=== PATIENT | female | born 1985 | race Asian ===

== ENCOUNTER 2019-06-23 06:42 | Inpatient (IN) | payer MEDICAID, OTHER, SELFPAY ==
--- NOTE | 2019-06-22 20:11 | PDOC.LDHP ---
Labor and Delivery H&P Chief complaint: scheduled induction HPI: 34 yo @ 40w0d by stated FRANCHESKA c/w sono in [place]. Pt had majority of PNC in [place]. Pt has A1DM and had been treated for Chlamydia in this (no BRYAN yet due to recent treatment). Current gestational age (weeks): 40 Due date: 06/23/19 Dating criteria: last menstrual period Grav: 2 Para: 1 OB History Details: 1 term Current complications: gestational diabetes Abnormal US findings: No Past Medical History: Anemia Current medications: pre-fernando vitamins, iron Previous surgical history: none Allergies/Adverse Reactions: Allergies Allergy/AdvReac Type Severity Reaction Status Date / Time No Known Allergies Allergy Verified 06/23/19 07:22 Social history: none - Physical Exam Vital signs reviewed and normal: yes General: NAD Heart: RRR Lungs: nonlabored breathing Abdomen: gravid Extremeties: no edema FHT: category 1 (140s, mod debra, +accels, no decels) [place] contractions every: irregular - Vaginal Exam cm dilated: 4 (cephalic, AROM clear fluid- bloody discharge from SVE) Effacement: 50% Station: -2 - OB Labs Blood type: B RH: positive Antibody Screen: negative HIV: negative RPR: negative HEPSAg: negative 3 hour GTT: 2 hr GTT positive- done in [place] GBS: negative Urine drug screen: negative Rubella: immune Additional Labs: Gonorrhea neg Chlamydia pos - Assessment 40w0d IUP IOL A1DM + CT, treated (BRYAN pending) - Plan Plan: admit to L&D, informed consent obtained, anesthesia consult for pain management -: Start pitocin for IOL
[2019-06-23] MEDS ORDERED: Carboprost 250 MCG/ML AMP IM PRN (06:58)
[2019-06-23] MEDS ORDERED: Diphenoxylate HCl/Atropine Tablet PO PRN (06:58)
[2019-06-23] MEDS ORDERED: HYDROcodone/Acetaminophen 5/325 mg Tablet PO PRN ×2 (06:58→14:46)
[2019-06-23] MEDS ORDERED: Ibuprofen 800 MG TAB PO PRN (06:58)
[2019-06-23] MEDS ORDERED: Promethazine HCl 25 MG/ML VIAL IM PRN (06:58)
[2019-06-23] MEDS ORDERED: Butorphanol Tartrate 1 MG/ML VIAL SLOW IVP PRN (06:58)
[2019-06-23] MEDS ORDERED: Misoprostol 200 MCG TAB PR PRN (06:58)
[2019-06-23] MEDS ORDERED: NS / Oxytocin 40 units/1000ml 1,000 ML IV PRN (06:58)
[2019-06-23] MEDS ORDERED: Acetaminophen 500 MG TAB PO PRN (06:58)
[2019-06-23] MEDS ORDERED: Methylergonovine 0.2 MG/ML VIAL IM PRN (06:58)
[2019-06-23] MEDS ORDERED: Lidocaine 1% (PF) 30 ML VIAL SC PRN (06:58)
[2019-06-23] MEDS ORDERED: hydrALAZINE 20 MG/ML VIAL SLOW IVP PRN ×2 (06:58→14:46)
[2019-06-23] MEDS ORDERED: Ondansetron PF 4 MG/2 ML Vial IVP PRN (06:58)
[2019-06-23] MEDS ORDERED: NS w/ Oxytocin 10 units 500 ML IV SCH (07:00)
[2019-06-23 07:32] VITALS: BMI 24.7
[2019-06-23 07:46] LABS: Hemoglobin 11.5 g/dL (12.0-16.0); Mean Corpuscular HGB CONC 33.4 g/dL (32.0-36.0); Mean Corpuscular Hemoglobin 30.3 pg (27.0-31.0); Mean Corpuscular Volume 90.9 fL (78.0-98.0); Mean Platelet Volume 9.4 fL (7.4-10.4); Platelet Count 148 thou/uL (130-400); RBC Distribution Width 15.5 % (11.5-14.5); White Blood Cell (WBC) Count 6.7 thou/uL (4.8-10.8)
[2019-06-23] MEDS: Lactated Ringer's 1,000 ML IV SCH ×3 (07:58→22:02)
[2019-06-23 08:12] LABS: ALT (SGPT) 8 U/L (8-55); AST (SGOT) 12 U/L (5-34); Albumin 3.4 g/dL (3.5-5.0); Alkaline Phosphatase 154 U/L (40-150); Anion Gap 11 mmol/L (10-20); BUN (Urea Nitrogen) 8 mg/dL (7.0-18.7); Bilirubin, Total 0.2 mg/dL (0.2-1.2); Calc. Creatinine Clearance 150 mL/min (70-130); Calcium 8.4 mg/dL (7.8-10.44); Carbon Dioxide 21 mmol/L (22-29); Chloride 107 mmol/L (98-107); Estimated GFR-MDRD Greater than 90; Globulin 2.4 g/dL (2.4-3.5); Glucose 133 mg/dL (70-105); Potassium 3.4 mmol/L (3.5-5.1); Protein, Total 5.8 g/dL (6.0-8.3); Sodium 136 mmol/L (136-145)
[2019-06-23 08:19] LABS: Syphilis Antibody Nonreactive (Nonreactive); Syphilis Antibody Index 0.04 S/CO (<1.00 Non-Reactive)
[2019-06-23 08:21] LABS: HIV (1/2) Antibody/Antigen Non-Reactive (NonReactive); HIV 1/2 INDEX 0.09 S/CO (<1.00); Hep B Surf Ag Non-Reactive S/CO (NonReactive)
[2019-06-23] MEDS ORDERED: Fentanyl 4 mcg/Bup 0.1% Cadd 100 ML ONE (11:35)
--- NOTE | 2019-06-23 14:09 | PDOC.OPDEL ---
OB Operative/Delivery Note Delivery Dr/Surgeon: Karin Brooks DO Pre-Delivery Diagnosis: medically indicated induction Procedure/Post Delivery Dx: spontaneous vaginal delivery Weeks gestation: 40 Anesthesia: epidural - Findings A Sex: female - 1 min: 9 - 5 min: 9 - Additional Findings/Plan Placenta delivered: spontaneous Repaired Obstetrical Laceration: other (2nd degree laceration Small left vaughn- uretheral laceration) Estimated blood loss: EBL 100 cc Compilations/Other Findings: Infant in DEVEN position Normal appearing placenta Post delivery plan: routine recovery
[2019-06-23] MEDS ORDERED: Benzocaine-Menthol 82.5 ML CAN TOP PRN (14:46)
[2019-06-23] MEDS ORDERED: NS / Oxytocin 40 units/1000ml 1,000 ML IV SCH ×2 (14:46→22:30)
[2019-06-23] MEDS ORDERED: Preparation H Ointment 28 GM TUBE PR PRN (14:46)
[2019-06-23] MEDS ORDERED: diphenhydrAMINE 25 MG CAP PO PRN (14:46)
[2019-06-23] MEDS ORDERED: Milk Of Magnesia 30 ML UDCUP PO PRN (14:46)
[2019-06-23] MEDS ORDERED: Bisacodyl 10 MG SUPP PR PRN (14:46)
[2019-06-23] MEDS ORDERED: Lanolin Ointment 7 GM TUBE TOP PRN (14:46)
[2019-06-23] MEDS: Ferrous Sulfate 325 MG TAB PO SCH (16:46)
[2019-06-23] MEDS: Docusate Calcium (SURFAK) 240 MG CAP PO SCH (21:37)
[2019-06-23] MEDS: Ibuprofen 800 MG TAB PO SCH (22:03)
[2019-06-24 06:30] LABS: Hemoglobin 11.2 g/dL (12.0-16.0); Mean Corpuscular HGB CONC 33.5 g/dL (32.0-36.0); Mean Corpuscular Hemoglobin 30.6 pg (27.0-31.0); Mean Corpuscular Volume 91.3 fL (78.0-98.0); Mean Platelet Volume 9.3 fL (7.4-10.4); Platelet Count 117 thou/uL (130-400); RBC Distribution Width 15.5 % (11.5-14.5); Red Blood Cell (RBC) Count 3.67 mill/uL (4.20-5.40); White Blood Cell (WBC) Count 8.8 thou/uL (4.8-10.8)
[2019-06-24] MEDS: Lactated Ringer's 1,000 ML IV SCH ×2 (07:55→15:06)
--- NOTE | 2019-06-24 08:04 | PDOC.PP ---
Post Progress Note Post Day #: 1 Subjective: No concerns. BP slightly hypotensive. Denies dizziness or heavy bleeding. Minimal lochia. Breast feeding, needs help with latching. PO intake tolerated: yes Flatus: yes Ambulation: yes Vital Signs (12 hours) Temp Pulse Resp BP BP Pulse Ox 06/24/19 07:59 98.2 F 78 12 88/51 L 96 06/24/19 05:44 97.7 F 86 18 91/50 L 06/24/19 00:00 98.2 F 70 20 83/45 L Weight Weight 147 lb - Physical Examination General: NAD Cardiovascular: RRR Respiratory: non-labored breathing Abdominal: no distention, appropriately TTP Fundus firm & at: below umbilicus Extremities: negative homans (B) Neurological: no gross focal deficits Psychiatric: A&Ox3, normal affect Result Diagrams: 06/24/19 05:22 06/23/19 07:34 Additional Labs: Post Labs Blood Type B POSITIVE 06/23/19 08:02 Hep Bs Antigen Non-Reactive S/CO (NonReactive) 06/23/19 07:35 (1) Vaginal delivery Code(s): O80 - ENCOUNTER FOR FULL-TERM UNCOMPLICATED DELIVERY Status: Acute - Assessment/Plan PPD1 Slight hypotensive. Pt baseline in SBP 90-100/50-60. Suspect normal for pt and due to epidural yesterday. Monitor BPs. LC today. Plan for d/c home tomorrow due to A1DM.
[2019-06-24] MEDS: Docusate Calcium (SURFAK) 240 MG CAP PO SCH ×2 (09:52→21:34)
[2019-06-24] MEDS: Prenatal Vitamin 1 TAB PO SCH (09:52)
[2019-06-24] MEDS: Ibuprofen 800 MG TAB PO SCH ×2 (09:53→15:06)
[2019-06-24] MEDS: Ferrous Sulfate 325 MG TAB PO SCH ×2 (09:53→16:41)
[2019-06-25] MEDS: Ibuprofen 800 MG TAB PO SCH ×3 (04:59→13:30)
[2019-06-25] MEDS: Lactated Ringer's 1,000 ML IV SCH ×2 (05:00→08:46)
[2019-06-25] MEDS: Ferrous Sulfate 325 MG TAB PO SCH (08:46)
[2019-06-25 08:57] VITALS: TEMP 98
[2019-06-25] MEDS: Docusate Calcium (SURFAK) 240 MG CAP PO SCH (10:10)
[2019-06-25] MEDS: Prenatal Vitamin 1 TAB PO SCH (10:10)
--- NOTE | 2019-06-25 10:44 | DIS ---
DATE OF ADMISSION: 06/23/2019 DATE OF DISCHARGE: 06/25/2019 ADMITTING DIAGNOSES: 1. Intrauterine at 40 weeks' gestation. 2. A1 diabetes. DISCHARGE DIAGNOSES: 1. Intrauterine at 40 weeks' gestation. 2. A1 diabetes. PROCEDURE: Term spontaneous vaginal delivery. CONSULTATIONS: None. HOSPITAL COURSE: The patient is a 34-year-old female, who presented for an induction of labor secondary to A1 diabetes at 40 weeks. The patient had an uncomplicated term spontaneous vaginal delivery. For complete details, please refer to the delivery note. Her course has been uncomplicated. She is now day 2. Today, she reports that tolerating p.o., voiding on her own, having decreased lochia, and good pain control. They have expressed concerns about breakdown of her perineal laceration as apparently this had occurred with her previous delivery. PHYSICAL EXAMINATION: VITAL SIGNS: Blood pressure this morning is 83/47, temperature 97.5, pulse is 65, and respiratory rate 16. GENERAL: She appears to be in no acute distress. She is alert and oriented, cooperative and pleasant to interact with. HEENT: Head is normocephalic, atraumatic. ABDOMEN: Fundus is firm. EXTREMITIES: Nontender. Nonedematous. LABORATORY STUDIES: Post delivery hemoglobin 11.2, hematocrit 33.5, and platelets of 117,000. The patient is being discharged to home. She has instructions to follow up with Dr. Brooks in 6 weeks or sooner if she experiences fever, increasing pain, or bleeding. She has also been counseled to keep an eye in her incision. To use Dermoplast liberally if she appears to be having worsening pain, drainage, or poor healing to let her doctor, Dr. Brooks, know sooner. Her blood pressures have been low over her stay, but the patient has remained asymptomatic. She has primarily been remaining in her bed with concerns of incision breakdown. There is a prescription for breast pump and medications on the chart from her primary physician. Job ID: [id number]
[2019-06-25 13:06] VITALS: BP 94/53
== END 2019-06-25 17:40 | disposition home or self-care (01) | DRG 806 ==
LOC: L&D 06:42 → 3SW 15:34
PROVIDERS: ADMIT Obstetrics & Gynecology; ATTEND Obstetrics & Gynecology
PROC: 10907ZC Drainage of Amniotic Fluid, Therapeutic from Products of Conception, Via Natural or Artificial Opening (ICD-10-PCS; principal; 2019-06-23)
PROC: 10E0XZZ Delivery of Products of Conception, External Approach (ICD-10-PCS; 2019-06-23)
PROC: 3E033VJ Introduction of Other Hormone into Peripheral Vein, Percutaneous Approach (ICD-10-PCS; 2019-06-23)
DX: O24.429 Gestational diabetes mellitus in childbirth, unspecified control (principal); O98.82 Other maternal infectious and parasitic diseases complicating childbirth; Z37.0 Single live birth; O70.1 Second degree perineal laceration during delivery; Z3A.40 40 weeks gestation of pregnancy
CPT/HCPCS: 36415; 80053; 85027; 86780; 86850; 86900; 86901; 87340; 87389; J2590